=== PATIENT | male | born 2005 ===

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

== ENCOUNTER 2024-06-06 03:25 | Emergency (ER) | payer MEDICAID, SELFPAY ==
--- NOTE | ~2024-06-06 | CT_ITS ---
EXAMINATION: CT ABDOMEN AND PELVIS WITH CONTRAST CLINICAL INFORMATION: Right lower quadrant pain. COMPARISON: None available. TECHNIQUE: Multidetector volumetric images were obtained from the superior aspect of the liver through the pubic symphysis following administration 85 mL of Omnipaque 350 intravenous contrast. Sagittal and coronal reformatted images were obtained on the technologist's workstation. Oral contrast: No This CT examination was performed using dose optimization techniques as appropriate, variously including the following: *Automated exposure control *Adjustment of mA and/or kV according to patient size (this includes techniques or standardized protocols for targeted exams where dose is matched to indication/reason for exam; i.e. extremities or head) *Use of iterative reconstruction technique DLP: 542 mGy-cm FINDINGS: LUNG BASES: The visualized lung bases are unremarkable. LIVER, GALLBLADDER, AND BILIARY TREE: Nonspecific periportal edema is noted. The gallbladder is unremarkable with no evidence of radiopaque gallstones, gallbladder wall thickening, or obvious pericholecystic inflammatory changes. PANCREAS: Unremarkable. SPLEEN: Unremarkable. ADRENAL GLANDS: Unremarkable. KIDNEYS AND URETERS: Delayed right nephrographic enhancement is noted. Mild right hydronephrosis is visualized. Moderate right ureterectasis is identified. A 3 mm x 2 mm calculus is present at the right ureterovesicular junction. No additional urolithiasis identified. No perinephric inflammatory changes or perinephric fluid collections visualized. BLADDER: Unremarkable. GASTROINTESTINAL TRACT: Normal appendix. No intestinal dilatation or mural thickening. No free intraperitoneal fluid or gas collections. No intestinal dilatation or mural thickening. ABDOMINAL WALL: No significant hernia is appreciated. LYMPH NODES: Normal. VASCULAR: Unremarkable. PELVIC VISCERA: Unremarkable. OSSEOUS STRUCTURES: Incidental 5 mm synovial inclusion cyst associated with the right femoral neck. CT/CT abdomen pelvis w IV con IMPRESSION: *Single 3 mm x 2 mm obstructing calculus at the right ureterovesicular junction associated with mild-moderate right hydronephrosis and ureterectasis. No additional urolithiasis. No perinephric fluid collections. *Normal appendix. Fleischner guidelines were followed. Electronically signed by: Mino Howell MD 06/06/2024 05:34 AM EDT
[2024-06-06 03:30] VITALS: BP 142/90; PULSE 70; O2SAT 99
[2024-06-06 03:33] VITALS: BMI 25.3
[2024-06-06 03:37] VITALS: BP 119/72; PULSE 88; RESP 19; TEMP 36.7; O2SAT 100
[2024-06-06] MEDS: ondansetron HCL 4 MG/2 ML VIAL IVPUSH (03:52)
[2024-06-06] MEDS: 0.9 % Sodium Chloride 1,000 ML 999 ML IVCONT (03:52)
[2024-06-06] MEDS: Ketorolac Tromethamine 30 MG/ML VIAL IVPUSH (03:53)
--- NOTE | 2024-06-06 03:55 | ED_ITS ---
HPI - Abdominal Pain General Chief Complaint: Abdominal Pain Stated Complaint: severe abdominal pain Time Seen by Provider: 06/06/24 03:44 Source: patient and EMS Mode of arrival: EMS Limitations: no limitations History of Present Illness ED Provider: Dr. Kimberly Sanders HPI narrative: Patient comes to the emergency room complaining of approximately 2 hours of severe right lower quadrant pain. Patient states it is very sharp around the right lower quadrant, flank area radiating towards the groin. Patient denies hematuria or dysuria. Patient complaining of nausea and vomiting. Denies diarrhea. Denies surgical history Related Data Previous Rx's ?Medication ?Instructions ?Recorded cetirizine 10 mg tablet 10 mg PO DAILY PRN allergy 01/31/21 symptoms #30 tabs fluticasone propionate 44 1 puff inhalation BID #10.6 grams 01/31/21 mcg/actuation HFA aerosol inhaler prednisone 20 mg tablet 40 mg (2 x 20 mg) PO DAILY 4 days 01/31/21 #8 tabs acetaminophen 500 mg tablet 1,000 mg (2 x 500 mg) PO QID PRN 05/05/22 pain #30 tabs ibuprofen 600 mg tablet 600 mg PO Q6H PRN pain #20 tabs 05/05/22 hydrocodone 5 mg-acetaminophen 325 1 tab PO Q4-6H PRN pain #8 tabs 05/18/22 mg tablet ketorolac 10 mg tablet 10 mg PO Q8H #12 tabs 06/06/24 prednisone 20 mg tablet 20 mg PO DAILY #3 tabs 06/06/24 tamsulosin 0.4 mg capsule 0.4 mg PO DAILY #14 caps 06/06/24 Allergies Allergy/AdvReac Type Severity Reaction Status Date / Time Seasonal Allergies Allergy Itchy Eyes Verified 06/02/22 15:51 shellfish derived Allergy Angioedema Verified 06/06/24 03:38 Review of Systems Review of Systems Constitutional : No Weight loss, No Fever, No Chills, No Night Sweats, No Fatigue, No Malaise ENT/Mouth : No Hearing loss, No Ear Pain, No Nasal Congestion, No Sinus Pain, No Hoarseness, No sore throat, No Rhinorrhea, No Swallowing Difficulty Eyes: No Eye Pain, No Swelling, No Redness, No Foreign Body, No Discharge, No Vision Changes Cardiovascular : No Chest Pain, No SOB, No Dyspnea on Exertion, No Orthopnea, No Edema, No Palpitations Respiratory : No Cough, No Sputum, No Wheezing, No Smoke Exposure, No Dyspnea Gastrointestinal : Complaining of nausea vomiting and right lower quadrant pain Genitourinary : no irregular bleeding, No Dysuria, No Urinary Frequency, No Hematuria, No Urinary Incontinence, No Urgency, complaining of right-sided flank pain radiating towards the right groin area, No Urinary Flow Changes, No Hesitancy Musculoskeletal : No joint pain, No Myalgias, No Joint Swelling Skin : No Skin Lesions, No rash Neuro : No Weakness, No Numbness, No Paresthesias, No Loss of Consciousness, No Dizziness, No Headache Psych : No Anxiety/Panic, No Depression, No SI/HI/AH/VH, No Social Issues, Heme/Lymph: No Bruising, No Bleeding,No Lymphadenopathy Endocrine : No Polyuria, No Polydipsia, No Temperature Intolerance [facility] Past Medical History Medical History Asthma Social History Social History Alcohol intake: current Patient Tobacco Use Status: Never used Tobacco Smoked in Last 30 Days: Yes Use of substances other than those prescribed or required for medical reasons: Yes Substance Use Type: Marijuana Substance Use Frequency: Daily Advance Directives: No Advance Directives Information Provided: Yes Current occupational status: other Physical Exam ED Vital Signs: Vital Signs - 24 hr 06/06/24 03:37 Temperature 98.0 F Pulse Rate 88 Respiratory Rate 19 Blood Pressure 119/72 Pulse Oximetry 100 Oxygen Delivery Method Room Air BMI result Body Mass Index 25.3 Const Other: Appearance: Alert. Oriented X3. Seems very uncomfortable Eyes: Pupils equal, round and reactive to light. ENT: Pharynx normal. Neck: Normal inspection. Neck supple. No lymph nodes noted. No crepitus CVS: Normal heart rate and rhythm. Pulses normal. Normal S1 and S2 Respiratory: No respiratory distress. Breath sounds normal. No Wheezing. No rales Abdomen: Soft tenderness to palpation in all quadrants with much worse over right lower quadrant and right flank Skin: Skin warm and dry. Normal skin color. Normal skin turgor. Extremities: No lower extremity edema. No Lacerations. No Rash Neuro: Oriented X 3. No motor deficit. No sensory deficit. Moving all extremities. No slurred speech. CN 2 through 12 grossly intact Psych: calm, cooperative, normal affect Course Course Course Narrative: All of patient's labs pending CT scan pending -patient receiving IV fluids, Zofran and Toradol. Patient likely passing a kidney stone versus appendicitis Medical Decision Making Medical Decision Making [facility] Narrative: -my interpretation of labs, white blood cell count 12.4, normal chemistry, urinalysis shows blood in the urine negative nitrite or leukocyte esterase, no bacteria in the urine. -interpretation of CT scan, there is a small stone at the UVJ -after a dose of ketorolac and morphine patient feeling better. Discussed with the patient that he is passing a kidney stone. -after the above-mentioned medications, patient feeling better Differential Diagnosis Differential Diagnoses: The differential diagnosis associated with the presentation includes (Appendicitis, kidney stone) Admission/Observation Consideration of admission/observation: Escalation of care including admission/observation considered (Given patient's amount of discomfort, observation was considered) Lab Data [facility] Lab Attestation statement: I reviewed the patient's lab results. 06/06/24 03:51 06/06/24 03:51 Labs: Lab Results 06/06/24 06/06/24 Range/Units 03:51 05:03 WBC 12.4 H (4.8-10.8) X10*3/uL RBC 4.52 L (4.60-5.80) X10*6/uL Hgb 13.9 L (14.0-18.0) g/dl Hct 40.7 L (42.0-52.0) % MCV 90.0 (80.0-98.0) fL MCH 30.8 (27.0-33.0) pg MCHC 34.2 (31.0-36.0) g/dl RDW 12.4 (11.0-16.0) % Plt Count 238 (160-400) X10*3/uL MPV 9.0 L (9.4-12.4) fL Immature Gran % (Auto) 0.2 (0.0-0.4) % Neut % (Auto) 50.1 (45-73) % Lymph % (Auto) 39.1 (20-40) % [place] % (Auto) 8.7 (2-11) % Eos % (Auto) 1.6 (0-4) % Baso % (Auto) 0.3 (0-2) % Lymph # (Auto) 4.9 (1.2-4.9) X10*3/uL [place] # (Auto) 1.1 (0.1-1.2) X10*3/uL Eos # (Auto) 0.2 (0.0-0.4) X10*3/uL Baso # (Auto) 0.0 (0.0-0.2) X10*3/uL Abs Immat Gran (auto) 0.03 (0.00-0.03) X10*3/uL Absolute Neuts (auto) 6.2 (2.0-8.3) x10*3/uL Absolute Nucleated RBC 0.000 (0.0-0.012) X10*3/uL Nucleated RBC % (auto) 0.0 (0.0-0.2) /100WBC PT 11.5 (10.9-12.4) SEC INR 1.0 (0.9-1.1) Sodium 140 (135-145) mmol/L Potassium 3.3 (3.3-5.1) mmol/L Chloride 107 (96-108) mmol/L Carbon Dioxide 21 L (22-29) mmol/L Anion Gap 15 (12-20) BUN 12 (9-16) mg/dL Creatinine 1.25 (0.5-1.4) mg/dL Estim Creat Clear Calc 100.4 Estimated GFR > 60 Random Glucose 124 H (60-115) mg/dL Calcium 9.2 D (8.4-10.2) mg/dL Magnesium 1.7 (1.6-2.6) mg/dL Total Bilirubin 0.4 (0.0-1.0) mg/dL Direct Bilirubin 0.1 (0.0-0.5) mg/dL AST 19 (5-37) U/L ALT 16 (0-40) U/L Alkaline Phosphatase 70 (39-117) U/L Total Protein 7.2 (6.5-8.0) g/dL Albumin 4.2 (3.5-5.0) g/dL Lipase 14 (8-78) U/L Urine Color Yellow Urine Appearance Clear Urine pH 5.5 (5.0-9.0) Ur Specific [place] >= 1.030 H (1.005-1.025) Urine Protein 30 (1+) H (Neg-Trace) mg/dL Urine Glucose (UA) Negative (Negative) mg/dL Urine Ketones Negative (Negative) mg/dL Urine Blood Large (3+) H (Negative) Urine Nitrite Negative (Negative) Ur Leukocyte Esterase Negative (Negative) Urine RBC 3-5 H (0-2) /HPF Urine WBC 11-20 H (0-5) /HPF Ur Squamous Epith Cells 0-2 (0-2) /HPF Urine Bacteria None Seen (None Seen) Hyaline Casts 0-2 (0-2) /LPF Independent Interpretation I performed an independent interpretation of an: CT Scan Radiology Impression Discussion of test interpretation with radiology: I have reviewed the radiologist's reading. Radiologist Impression: *Single 3 mm x 2 mm obstructing calculus at the right ureterovesicular junction associated with mild-moderate right hydronephrosis and ureterectasis. No additional urolithiasis. No perinephric fluid collections. *Normal appendix. Medications Administered Discontinued Medications Generic Name Dose Route Start Last Admin Trade Name Freq PRN Reason Stop Dose Admin Sodium Chloride 1,000 mls @ 999 mls/hr 06/06/24 03:44 06/06/24 05:18 Ns IVCONT 06/06/24 04:44 Infused .Q1H1M ONE Infusion Iohexol 85 ml 06/06/24 04:31 06/06/24 04:32 Iohexol 350 Mg/Ml 100 Ml Infus..Btl IV 06/06/24 04:32 85 ml ONCE ONE Administration Ketorolac Tromethamine 30 mg 06/06/24 03:44 06/06/24 03:53 Ketorolac Tromethamine 30 Mg/Ml Vial IVPUSH 06/06/24 03:45 30 mg ONCE ONE Administration Morphine Sulfate 4 mg 06/06/24 04:48 06/06/24 05:01 Morphine Sulfate 4 Mg/Ml Cartridge IVPUSH 06/06/24 04:49 4 mg ONCE ONE Administration Protocol Ondansetron HCl 4 mg 06/06/24 03:44 06/06/24 03:52 Ondansetron Hcl 4 Mg/2 Ml Vial IVPUSH 06/06/24 03:45 4 mg ONCE ONE Administration Critical Care Time Critical Care Time Critical Care Time: Yes Total Critical Care Time: 60 Attestation: I have personally provided critical care time. Time includes review of lab data, radiology results, discussion with consultants, and monitoring for potential decompensation. Intervention performed as documented. Discharge Plan Discharge Clinical Impression: Kidney stone Patient Disposition: Home, Self-Care Instructions: Kidney Stones (ED) Additional Instructions: Please follow-up with your primary care physician tomorrow. If you have any worsening or new symptoms, please return to the emergency room or call 911 Prescriptions: New prednisone 20 mg tablet 20 mg PO DAILY Qty: 3 0RF tamsulosin 0.4 mg capsule 0.4 mg PO DAILY Qty: 14 0RF ketorolac 10 mg tablet 10 mg PO Q8H Qty: 12 0RF Rx Instructions: Do not use with ibuprofen, only NSAIDs No Action prednisone 20 mg tablet 40 mg PO DAILY 4 Days Qty: 8 0RF cetirizine 10 mg tablet 10 mg PO DAILY PRN (Reason: allergy symptoms) Qty: 30 2RF fluticasone propionate 44 mcg/actuation HFA aerosol inhaler 1 puff inhalation BID Qty: 10.6 2RF Rx Instructions: administer with spacer, rinse mouth after, only to be used daily during allergy season acetaminophen 500 mg tablet 1,000 mg PO QID PRN (Reason: pain) Qty: 30 0RF ibuprofen 600 mg tablet 600 mg PO Q6H PRN (Reason: pain) Qty: 20 0RF hydrocodone-acetaminophen 5-325 mg tablet 1 tab PO Q4-6H PRN (Reason: pain) Qty: 8 0RF Rx Instructions: Partial Fill upon patient request. Referrals: Johnathon Lawrence MD [Physician] - 06/12/24 Stand Alone Forms: Work/School Release Print Language: Greek
[2024-06-06 03:57] LABS: Basophils Percent Auto 0.3 % (0-2); Eosinophils Absolute Auto 0.2 X10*3/uL (0.0-0.4); Eosinophils Percent Auto 1.6 % (0-4); Hematocrit 40.7 % (42.0-52.0); Hemoglobin 13.9 g/dl (14.0-18.0); Imm Gran Abs Auto 0.03 X10*3/uL (0.00-0.03); Imm Gran Pct Auto 0.2 % (0.0-0.4); Lymphocytes Absolute Auto 4.9 X10*3/uL (1.2-4.9); Lymphocytes Percent Auto 39.1 % (20-40); MANUAL DIFF FLAG NO; Mean Corpuscular HGB Conc 34.2 g/dl (31.0-36.0); Mean Corpuscular Hemoglobin 30.8 pg (27.0-33.0); Monocytes Absolute Auto 1.1 X10*3/uL (0.1-1.2); Monocytes Percent Auto 8.7 % (2-11); Neutrophils Absolute Auto 6.2 x10*3/uL (2.0-8.3); Neutrophils Percent Auto 50.1 % (45-73); Platelet Count 238 X10*3/uL (160-400); Red Blood Count 4.52 X10*6/uL (4.60-5.80); Red Cell Distribution Width 12.4 % (11.0-16.0); White Blood Count 12.4 X10*3/uL (4.8-10.8)
[2024-06-06 04:02] LABS: Prothrombin Time 11.5 SEC (10.9-12.4)
[2024-06-06 04:18] LABS: Alanine Aminotransferase 16 U/L (0-40); Albumin Level 4.2 g/dL (3.5-5.0); Alkaline Phosphatase 70 U/L (39-117); Anion Gap 15 (12-20); Aspartate Amino Transferase 19 U/L (5-37); Bilirubin Direct 0.1 mg/dL (0.0-0.5); Bilirubin Total 0.4 mg/dL (0.0-1.0); Blood Urea Nitrogen 12 mg/dL (9-16); Calcium 9.2 mg/dL (8.4-10.2); Carbon Dioxide 21 mmol/L (22-29); Chloride 107 mmol/L (96-108); Creatinine Clr Calc Pharmacy 100.4; Estimated Glomerular Filt Rate > 60; Glucose Random 124 mg/dL (60-115); Lipase 14 U/L (8-78); Magnesium 1.7 mg/dL (1.6-2.6); Potassium 3.3 mmol/L (3.3-5.1); Sodium 140 mmol/L (135-145); Total Protein 7.2 g/dL (6.5-8.0)
[2024-06-06] MEDS: iohexoL 350 MG/ML 100 ML INFUS..BTL 85 ML IV (04:32)
[2024-06-06] MEDS: Morphine Sulfate 4 MG/ML CARTRIDGE IVPUSH (05:01)
[2024-06-06 05:17] LABS: Appearance Urine Clear; Color Urine Yellow; Glucose Urine UA Negative (Negative); Leukocyte Esterase Urine Negative (Negative); Nitrite Urine Negative (Negative); PH 5.5 (5.0-9.0); Specific Gravity - Urine >= 1.030 (1.005-1.025); UMIC TRIGGER UACC YES; Urine Blood Large (3+) (Negative); Urine Ketones Negative (Negative); Urine Protein 30 (1+) mg/dL (Neg-Trace)
[2024-06-06 05:25] LABS: Bacteria Urine None Seen (None Seen); Hyaline Casts Urine 0-2 /LPF (0-2); Squamous Epithelial Cell Urine 0-2 /HPF (0-2); UACC Culture Trigger YES
[2024-06-06 06:10] VITALS: BP 120/61; PULSE 75; RESP 18; TEMP 36.9; O2SAT 100
[2024-06-06 06:37] VITALS: BP 120/61; PULSE 75; RESP 18; TEMP 36.9; O2SAT 100
== END 2024-06-06 06:38 | disposition home or self-care (01) ==
PROVIDERS: Emergency Provider Emergency Medicine
DX: N13.2 Hydronephrosis with renal and ureteral calculous obstruction (principal); R10.31 Right lower quadrant pain; R11.2 Nausea with vomiting, unspecified; J45.909 Unspecified asthma, uncomplicated; Z79.899 Other long term (current) drug therapy
CPT/HCPCS: 36415; 74177; 80048; 80076; 81001; 83690; 83735; 85025; 85610; 87086; 96361; 96374; 96375; 99284; J1885; J2270; J2405; Q9967

== ENCOUNTER 2024-07-21 10:09 | Outpatient (AMB) | payer MEDICAID, SELFPAY ==
--- NOTE | 2024-07-21 10:21 | MHC.OFFVIS ---
Intake Visit Reasons: kidney stones Intake Note: New patient Presents for [facility] follow up Kidney stones Any Urology Medication: Tamsulosin, Prednisone Antibiotic Allergies: None Blood Thinners: None Any Family History (Urological): Bladder Cancer? None Prostate Cancer? None Kidney Disease? None Kidney Stones? 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 Accompanied by: Self / Same As Patient Allergies Seasonal Allergies Allergy (Verified 07/21/24 10:37) Itchy Eyes shellfish derived Allergy (Verified 07/21/24 10:37) Angioedema Medication List - Last Reconciled 07/21/24 by Johnathon Lawrence MD acetaminophen 1,000 mg (2 x 500 mg) PO QID PRN cetirizine 10 mg PO DAILY PRN fluticasone propionate 44 mcg/actuation 1 puff inhalation BID hydrocodone-acetaminophen 5-325 mg 1 tab PO Q4-6H PRN ibuprofen 600 mg PO Q6H PRN ketorolac 10 mg PO Q8H prednisone 40 mg (2 x 20 mg) PO DAILY 4 days prednisone 20 mg PO DAILY tamsulosin 0.4 mg PO DAILY HPI Comments Details: Heber is a pleasant male. He is a patient of . He is seen for following urologic conditions - nephrolithiasis Nephrolithiasis Recent hospital admission CT - Delayed right nephrographic enhancement is noted. Mild right hydronephrosis is visualized. Moderate right ureterectasis is identified. A 3 mm x 2 mm calculus is present at the right ureterovesicular junction Family history with father who has stones Encouraged 64 oz fluid per day and lemon juice Interval surveillance PFSH Medical History Asthma Social History Alcohol intake: current Patient Tobacco Use Status: Never used Tobacco Substance Use Type: Marijuana Current occupational status: other Review of Systems Const Denies chills and Denies fever(s) Card Reports no additional complaints and Denies syncope Resp Denies cough GI Denies abdominal pain and Denies heartburn Reports as per HPI and Denies change in libido Neuro Denies syncope Psych Denies change in libido Endo Denies change in libido Physical Exam Const General: cooperative, healthy appearing, comfortable and no acute distress Orientation/consciousness: patient oriented x3 HEENT Face and sinus: Yes normal facial exam Mouth: moist mucous membranes Neck Neck: Yes normal visual inspection, Yes full ROM and Yes trachea midline Chest Chest palpation & inspection: normal inspection of the chest Resp Effort & Inspection: normal respiratory effort, able to speak in complete sentences and no respiratory distress GI Inspection: Yes normal to inspection Back/Spine/Pelvis Cervical Spine: normal cervical lordosis Thoracic/Lumbar Spine: thoracic and lumbar spine normal to inspection Skin General skin exam: no rashes or lesions noted Neuro General: patient oriented x3, gait normal, tone normal and moves all extremities Extrem General: Yes normal to inspection and Yes capillary refill normal Assessment & Plan Assessment & Plan (1) Kidney stone: Code(s): N20.0 - Calculus of kidney Category: Medical Plan Twelve month follow-up renal ultrasound Orders: Orders US renal BI 12 Months N20.0 - Calculus of kidney Patient Instructions: Imaging studies, laboratory and physical exam results were discussed and reviewed in detail. No major barriers to patient understanding were identified. An opportunity to ask questions regarding the treatment plan was provided. All questions were answered. The patient expressed understanding and agreement with the above treatment plan. The patient is aware they should contact our office by phone for worsening of their current condition or the appearance of new urologic symptoms. Compliance is encouraged with any medications and followup testing that is ordered. It is a privilege to participate in the urologic care of your patient. If you have any questions or concerns regarding treatment for the above conditions, or other urologic issues, please do not hesitate to contact me. The office telephone contact is [phone]. This note is constructed using voice recognition software. While every effort has been made to ensure accuracy quality checker errors may have been included. Yours sincerely, Dr Johnathon Lawrence MD, EMER[facility] - Urology Providers of Expert, Compassionate Care for the Genitourinary System Coding Level of Care Code New Pt Level 3 (42939) Diagnoses Kidney stone N20.0
== END 2024-07-21 11:03 | disposition home or self-care (01) ==
PROVIDERS: PCP Internal Medicine; Visit Provider Urology
DX: N20.0 Calculus of kidney (principal)
CPT/HCPCS: 99203

== ENCOUNTER → 2024-07-21 10:09 | Outpatient (BNVA) | payer MEDICAID, SELFPAY | PROVIDERS: PCP Internal Medicine; Visit Provider Urology | DX: N20.0 Calculus of kidney (principal) | CPT/HCPCS: 99202 ==

== ENCOUNTER 2025-07-30 11:07 | Outpatient (REF) | payer MEDICAID, SELFPAY ==
--- OUTSIDE RECORDS SUMMARY | 2025-07-30 10:15 | XMS_ITS | Encounter Summary ---
Author Organization [employer] Address [address] [place] [address] [address] [address] Care Team Providers Care Wrapper Counter Name Role Phone Roopa Ceron MD Primary Care Provide r Reason for Referral * Consultation (Routine) - Authorized Specialty Diagnoses / Procedures Referred By Liliana fontaine Referred To Contact Dental Intraoperative Neuro Tech / Dentistry Diagnoses Encounter for preventive care Roopa Ceron MD [address] [place] [address] Phone: tel: fax: Referral ID Status Reason Start Date Expiration Date Visits Requested Visits Authorized [id number] Authorized Consult and Treat 07/30/2025 07/30/2026 1 1 Encounter Details Date Type Department Care Team (Late st Contact Info) Description 07/30/2025 10:15 AM EST Office Visit [facility] MED[facility]INE [address] [place], [place] [phone] Roopa Ceron MD [address] [place], [place] [phone] Heartburn (Primary Dx); Encounter for preventive care; Mild persistent asthma without complication; Smoker; Tinea pedis of both feet Social History Tobacco Use Types Packs/Day Years Used Date Smoking Tobacco: Some Days Cigarettes Passive Smoke Exposure: Current Smokeless Tobacco: Never Alcohol Use Standard Drinks/Week Comments Yes 0 (1 standard drink = 0.6 oz pur e alcohol) oca Depression Answer Date Recorded Patient Health Questionnaire-9 Score 13 07/30/2025 Patient Health Questionnaire-9 Score 13 07/30/2025 Last PHQ-9: Questionnaire Data Not on file 1 09/29/2024 Housing Stability Answer Date Recorded What is your housing situation today? I have thad petit 07/23/[address] you li ve. Do you have problems with any of the following? None of the above 07/23/2025 Food Insecurity Answer Date Recorded Within the past 12 months, y ou worried that your food would run out before you got money to buy more: Never True 07/23/2025 Within the past 12 months,th e food you bought just didn't last and you didn't have enough money to get more: Never True Transportation Answer Date Recorded In the past 12 months, has l ack of transportation kept you from medical appts, meetings, work or from getting things needed for daily living? No 07/23/2025 Utilities Answer Date Recorded In the past 12 months, has t he electric, gas, oil or water company threatened to shut off services in your home? No 07/23/2025 Depression Answer Date Recorded Patient Health Questionnaire-2 Score 3 07/30/2025 Internet Access Answer Date Recorded Internet Access Q1 Yes 07/23/2025 Internet Access Q2 Not on file 07/23/2025 Sex and Gender Information Value Date Recorded Sex Assigned at Male 07/06/2022 10:17 AM EDT Legal Sex Male 10:17 AM EDT Gender Identity Male 07/06/2022 10:17 AM EDT Sexual Orientation Straight 07/06/2022 10 :17 AM EDT documented as of this encounter Last Filed Vital Signs Vital Sign Reading Time Taken Comments Blood Pressure 124/92 07/30/2025 10:25 AM EST Pulse 74 07/30/2025 10:25 AM EST Temperature 36.1 C (96.9 F) 07/30/2025 10:25 AM EST Respiratory Rate 16 07/30/2025 10:2 5 AM EST Oxygen Saturation 97% 07/30/2025 10: 25 AM EST Inhaled Oxygen Concentration - - Weight 79.3 kg (174 lb 12.8 oz) 025 10:25 AM EST Height 180.3 cm (5' 11 ) 07/30/2025 10: 25 AM EST Body Mass Index 24.38 07/30/2025 10:25 AM EST documented in this encounter Functional Status * Over the past 2 weeks, how often have you been bothered by any of the following problems? Question Answer Date of Assessment Author Patient Health Questionnaire-2 Score 3 07/08 11:02 AM Yoana Hendricks MA * Little interest or pleasure in doing things Answer Date of Assessment Author Nearly every day 07/30/2025 11:02 AM Yoana Hendricks MA * Feeling down, depressed, or hopeless Answer Date of Assessment Author Not at all 07/30/2025 11:02 AM Irais Hendricks MA * Trouble falling or staying asleep, or sleeping too much Answer Date of Assessment Author Nearly every day 07/30/2025 11:02 AM Yoana Hendricks MA * Feeling tired or having little energy Answer Date of Assessment Author Nearly every day 07/30/2025 11:02 AM Yoana Hendricks MA * Poor appetite or overeating Answer Date of Assessment Author More than half the days 07/30/2025 11:02 AM Yoana Hendricks MA * Feeling bad about yourself - or that you are a failure or have let yourself or your family down Answer Date of Assessment Author Not at all 07/30/2025 11:02 AM Irais Hendricks MA * Trouble concentrating on things, such as reading the newspaper or watching television Answer Date of Assessment Author Not at all 07/30/2025 11:02 AM Irais Hendricks MA * Moving or speaking so slowly that other people could have noticed? Or the opposite - being so fidgety or restless that you have been moving around a lot more than usual. Answer Date of Assessment Author More than half the days 07/30/2025 11:02 AM Yoana Hendricks MA * Thoughts that you would be better off or hurting yourself in some way Answer Date of Assessment Author Not at all 07/30/2025 11:02 AM Irais Hendricks MA * Patient Health Questionnaire-9 Score Answer Date of Assessment Author 13 07/30/2025 11:02 AM Irais Hendricks MA * Over the last 2 weeks, how often have you been bothered by any of the following problems? Question Answer Date of Assessment Author Feeling nervous, anxious, or on edge 0 07/08 11:02 AM Yoana Hendricks MA Not being able to stop or co ntrol worrying 1 07/30/2025 11:02 AM Yoana Hendricks MA Worrying too much about diff erent things 1 07/30/2025 11:02 AM Yoana Hendricks MA Trouble relaxing 2 07/30/2025 11:02 AM Yoana Hendricks MA Being so restless that it is hard to sit still 0 07/30/2025 11:02 AM Yoana Hendricks MA Becoming easily annoyed or irritable 3 07/08 11:02 AM Yoana Hendricks MA Feeling afraid as if somethi ng awful might happen 1 07/30/2025 11:02 AM Yoana Hendricks MA VICKI-7 Total Score 8 07/30/2025 11:02 AM Yoana Hendricks MA * How difficult have these problems made it for you to do your work, take care of things at home, or get along with other people? Answer Date of Assessment Author Not difficult at all 07/30/2025 11:02 AM Yoana Price MA documented as of this encounter Progress Notes * Roopa Bains MD - 07/30/2025 10:15 AM EST SUBJECTIVE: Heber Maza is a 19 y.o. year old male who presents for Physical . 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 - Acute Concerns: Patient reports he has being having itchy dry skin/rash between his toes Patient reports she has being having epigastric abdominal pain and burning sensation also nausea specially on mornings Social History Social History Narrative Not on file Problem List[1] Low vision, both eyes Mild persistent asthma Overweight Kidney stone Mild intermittent asthma with exacerbation Diminished vision Hearing deficit, bilateral Onychomycosis Health care maintenance Encounter for preventive care Smoker Tinea pedis of both feet Family History[2] Review of Systems Constitutional: Negative. HENT: Negative. Respiratory: Negative. Cardiovascular: Negative. Gastrointestinal: Positive for abdominal pain, nausea and vomiting. Negative for abdominal distention, anal bleeding, blood in stool, constipation, diarrhea and rectal pain. Skin: Positive for rash. OBJECTIVE: Vitals: 07/30/25 1025 BP: (!) 124/92 BP Location: Left arm Patient Position: Sitting BP Cuff Size: Adult Pulse: 74 Resp: 16 Temp: 96.9 ??F (36.1 ??C) TempSrc: Temporal SpO2: 97% Weight: 174 lb 12.8 oz (79.3 kg) Height: 5' 11 (1.803 m) Physical Exam Constitutional: Appearance: Normal appearance. Cardiovascular: Rate and Rhythm: Normal rate and regular rhythm. Pulmonary: Effort: Pulmonary effort is normal. Breath sounds: Normal breath sounds. Abdominal: General: Abdomen is flat. Tenderness: There is abdominal tenderness in the epigastric area. Feet: Comments: Tinea pedis between tall toes Neurological: Mental Status: He is alert. Follow Up: No follow-ups on file. Medications Ordered Prior to Encounter[3] Problem List Items Addressed This Visit Encounter for preventive care See HPI Relevant Orders Referral to [facility] Dental Adult HIV-1/2 Antigen and Antibodies, Fourth Generation, with Reflexes Hepatitis A,B,C Profile RPR (Monitor) with Reflex to Titer Chlamydia/N. Gonorrhoeae, PCR, Urine Mild persistent asthma Stable c/w current interventions Relevant Medications albuterol (2.5 MG/3ML) 0.083% nebulizer solution albuterol (Ventolin HFA) 108 (90 Base) MCG/ACT inhaler Smoker Counseling done nicotine gum prescribed Relevant Medications nicotine polacrilex (Nicorette) 4 MG gum Tinea pedis of both feet Clotrimazole prescribed apply BID Relevant Medications clotrimazole (Lotrimin) 1 % cream Heartburn - Primary I advise patient to avoid NSAIDs, spicy and acid food, I advise to eat at the same time every day, I advise to elevate the head of the bed and take medications as prescribe Relevant Orders Helicobacter pylori Antigen, EIA, Stool [1] Patient Active Problem List Diagnosis Low vision, both eyes Mild persistent asthma Overweight Kidney stone Mild intermittent asthma with exacerbation Diminished vision Hearing deficit, bilateral Onychomycosis Health care maintenance Encounter for preventive care Smoker Tinea pedis of both feet Heartburn [2] No family history on file. [3] Current Outpatient Medications on File Prior to Visit Medication Sig Dispense Refill cetirizine (ZyrTEC) 10 MG tablet Take 1 tablet (10 mg) by mouth Once per day. 30 tablet 11 ciclopirox (Penlac) 8 % solution Apply topically at bedtime. 6 mL 1 ketorolac (Toradol) 10 MG tablet TAKE 1 TABLET BY MOUTH EVERY 8 HOURS (DO NOT USE WITH IBUPROFEN) Mometasone Furoate (Asmanex HFA) 100 MCG/ACT aerosol INHALE 2 PUFFS BY MOUTH 2 TIMES A DAY 30 g 2 montelukast (Singulair) 10 MG tablet TAKE 1 TABLET BY MOUTH EVERYDAY AT BEDTIME 90 tablet 1 tamsulosin (Flomax) 0.4 MG 24 hr capsule Take 0.4 mg by mouth Once per day. [DISCONTINUED] albuterol (2.5 MG/3ML) 0.083% nebulizer solution Take 3 mL (2.5 mg) by nebulization every 6 (six) hours if needed for wheezing. 75 mL 11 [DISCONTINUED] albuterol (Ventolin HFA) 108 (90 Base) MCG/ACT inhaler INHALE 2 TO 4 PUFFS BY MOUTH EVERY 4 HOURS NEEDED FOR WHEEZING AND COUGHING 18 g 1 No current facility-administered medications on file prior to visit. documented in this encounter Miscellaneous Notes * Assessment & Plan Note - Roopa Bains MD - 07/30/2025 12:13 PM EST Associated Problem(s): Smoker Counseling done nicotine gum prescribed * Assessment & Plan Note - Roopa Bains MD - 07/30/2025 12:12 PM EST Associated Problem(s): Tinea pedis of both feet Clotrimazole prescribed apply BID * Assessment & Plan Note - Roopa Bains MD - 07/30/2025 12:12 PM EST Associated Problem(s): Mild persistent asthma Stable c/w current interventions * Assessment & Plan Note - Roopa Bains MD - 07/30/2025 12:11 PM EST Associated Problem(s): Heartburn I advise patient to avoid NSAIDs, spicy and acid food, I advise to eat at the same time every day, I advise to elevate the head of the bed and take medications as prescribe * Assessment & Plan Note - Roopa Bains MD - 07/30/2025 12:11 PM EST Associated Problem(s): Encounter for preventive care See HPI documented in this encounter Plan of Treatment Upcoming Encounters Date Type Department Care Team (Late st Contact Info) Description 08/29/2025 10:00 AM EST Telemedicine [facility] MEDICINE [address] [place] [address] Roopa Ceron MD [address] [place] [address] Scheduled Orders Name Type Priority Associated Diagnoses Orde r Schedule HIV-1/2 Antigen and Antibodies, Fourth Generation, with Reflexes Lab Routine Encounter for preventive care Expected: 07/30/2025 (Approximate), Expires: 07/30/2026 Hepatitis A,B,C Profile Lab Routine Encounter for preventive care Expected: 07/30/2025, Expires: 07/30/2026 RPR (Monitor) with Reflex to Titer Lab Routine Encounter for preventive care Expected: 07/30/2025, Expires: 07/30/2026 Chlamydia/N. Gonorrhoeae, PCR, Urine Lab Routine Encounter for preventive care Ordered: 07/30/2025 Helicobacter pylori Antigen, EIA, Stool Lab Routine Heartburn Expected: 07/30/2025, Expires: 07/30/2026 Scheduled Referrals Name Type Priority Associated Diagnoses Orde r Schedule Referral to [facility] Dental Adult Outpatient Referral Routine Encounter for preventive care Expected: 07/30/2025 (Approximate), Expires: 07/30/2026 documented as of this encounter Visit Diagnoses Diagnosis Heartburn- Primary Encounter for preventive care Mild persistent asthma without complication Smoker Tobacco use disorder Tinea pedis of both feet documented in this encounter Additional Health Concerns Assessment Noted Time PHQ-9 Depression Total Score: 13 025 11:02 AM EST documented as of this encounter Care Teams Wrapper Counter Relationship Specialty Start Date End Date Roopa Ceron MD [address] [place] [id number] PCP - General Internal Medicine 05/12/24 documented as of this encounter
--- OUTSIDE RECORDS SUMMARY | 2025-07-30 14:19 | XMS_ITS | Clinical Summary ---
Author Organization [employer] Address [address] [facility] [address] [place] [address] Care Team Providers Care Dictaphone Operator Name Role Phone Roopa Ceron MD Primary Care Provide r Allergies Active Allergy Reactions Criticality Noted Date Comments Shellfish Allergy Unknown Medium 01/12/2023 Medications Mometasone Furoate (Asmanex HFA) 100 MCG/ACT aerosol INHALE 2 PUFFS BY MOUTH 2 TIMES A DAY 30 g 2 024 Active ciclopirox (Penlac) 8 % solutionIndicat ions:Onychomyco sis Apply topically at bedtime. 6 mL 1 Active ketorolac (Toradol) 10 MG tablet TAKE 1 TABLET BY MOUTH EVERY 8 HOURS (DO NOT USE WITH IBUPROFEN) Active tamsulosin (Flomax) 0.4 MG 24 hr capsule Take 0.4 mg by mouth Once per day. 024 Active cetirizine (ZyrTEC) 10 MG tablet Take 1 tablet (10 mg) by mouth Once per day. 30 tablet 11 025 2025 Active montelukast (Singulair) 10 MG tablet TAKE 1 TABLET BY MOUTH EVERYDAY AT BEDTIME 90 tablet 1 025 Active albuterol (2.5 MG/3ML) 0.083% nebulizer solutionIndicat ions:Mild persistent asthma without complication Take 3 mL (2.5 mg) by nebulization every 6 (six) hours if needed for wheezing. 75 mL 11 11/242025 Active albuterol (Ventolin HFA) 108 (90 Base) MCG/ACT inhalerIndicati ons:Mild persistent asthma without complication INHALE 2 TO 4 PUFFS BY MOUTH EVERY 4 HOURS NEEDED FOR WHEEZING AND COUGHING 18 g 1 Active nicotine polacrilex (Nicorette) 4 MG gumIndications: Smoker Chew 1 each (4 mg) if needed for smoking cessation. 100 each 025 2024 Active clotrimazole (Lotrimin) 1 % creamIndication s:Tinea pedis of both feet Apply topically 2 times daily for 28 days. 30 g 2 025 2024 Active albuterol (2.5 MG/3ML) 0.083% nebulizer solution Take 3 mL (2.5 mg) by nebulization every 6 (six) hours if needed for wheezing. 75 mL 11 025 2024 Discontinued(R eorder (will not trigger notification to Pharmacy)) albuterol (Ventolin HFA) 108 (90 Base) MCG/ACT inhaler INHALE 2 TO 4 PUFFS BY MOUTH EVERY 4 HOURS NEEDED FOR WHEEZING AND COUGHING 18 g 1 025 2024 Discontinued(R eorder (will not trigger notification to Pharmacy)) Active Problems Problem Noted Date Diagnosed Date Encounter for preventive care 07/30/2025 Assessment & Plan (07/30/2025 12:11 PM EST): See HPI Smoker 07/30/2025 Assessment & Plan (07/30/2025 12:13 PM EST): Counseling done nicotine gum prescribed Tinea pedis of both feet 07/30/2025 Assessment & Plan (07/30/2025 12:12 PM EST): Clotrimazole prescribed apply BID Heartburn 07/30/2025 Assessment & Plan (07/30/2025 12:11 PM EST): I advise patient to avoid NSAIDs, spicy and acid food, I advise to eat at the same time every day, I advise to elevate the head of the bed and take medications as prescribe Diminished vision 07/11/2024 Hearing deficit, bilateral 07/11/2024 Onychomycosis 07/11/2024 Health care maintenance 07/11/2024 Kidney stone 07/04/2024 Assessment & Plan (07/04/2024 7:01 PM EDT): No evidence of UTI today. Har[facility] Brusher to increase PO fluids, filter urine. Start Pyridium 200 mg, continue Flomax and refer to Urology. Mild intermittent asthma with exacerbation 07/04 Assessment & Plan (07/04/2024 7:01 PM EDT): Restart Flovent BID and use Albuterol 4 x per day prn SOB. He smokes cigarettes occasionally, advised to quit. Mild persistent asthma 01/12/2023 Assessment & Plan (07/30/2025 12:12 PM EST): Stable c/w current interventions Low vision, both eyes 08/15/2013 Overweight 08/15/2013 Encounters Date Type Department Care Team Description 07/30/2025 10:15 AM EST Office Visit [facility] [address] [place] [phone] Roopa Ceron MD Heartburn (Primary Dx); Encounter for preventive care; Mild persistent asthma without complication; Smoker; Tinea pedis of both feet 07/30/2025 Travel 07/27/2025 Telephone [facility] [address] [place] [address] Roopa Ceron MD chart prep 07/23/2025 Patient Outreach [address] [address] Roopa Ceron MD Pre-visit Planning (SDOH screening negative and tobacco screening positive) 05/17/2025 Telephone [facility] [address] [place], [place] [phone] Roopa Ceron MD NOV RECALL 05/08/2025 Refill [facility] [address] [place] [phone] Roopa Ceron MD from Last 3 Months Immunizations Immunization Administration Dates Next Due DTaP 03/15/2009, 5,07/03/2004,05/01,03/03/2004 HPV 9-Valent 02/21/2021,11/29/2020,07/28/2019 Hep A, ped/adol, 2 dose 01/01/2015,08/15/2013 Hep B, Adolescent or Pediatric 4,05/01/2004,01/31/2004,12/25 Hib (HbOC) 04/23/2005, 4,05/01/2004,03/03 IPV 03/15/2009, 4,05/01/2004,03/03 Influenza injectable quadriv alent preservative free 11/29/2020,07/28/2019,06/15/2016,06/24 Influenza, IIV3, injectable 07/07/2007 Influenza, Split (incl. indra fied surface antigen) 08/15/2013 Influenza, seasonal, injecta ble, preservative free 07/11/2024 MMR 03/15/2009,01/21/2005 Meningococcal MCV4P ACYW-135 11/29/2020,06/24/20 15 Pneumococcal Conjugate PCV 20 07/11/2024 Pneumococcal Conjugate PCV 7 04/13/2005, 07/03/2004,05/01/2004,03/03 Pneumococcal, Unspecified 04/13/2005,,05/01/2004,03/03 Tdap 11/29/2020,06/28/2015 Varicella 03/15/2009,01/21/2005 Social History Tobacco Use Types Packs/Day Years Used Date Smoking Tobacco: Some Days Cigarettes Passive Smoke Exposure: Current Smokeless Tobacco: Never Tobacco Cessation:Ready to Q uit: Not Asked; Counseling Given: Not Answered Alcohol Use Standard Drinks/Week Comments Yes 0 [...] Orientation Straight 07/06/2022 10 :17 AM EDT Last Filed Vital Signs Vital Sign Reading [...] Mass Index 24.38 07/30/2025 10:25 AM EST Plan of Treatment Upcoming Encounters Date Type Department Care Team (Late st Contact Info) Description 08/29/2025 10:00 AM EST Telemedicine [facility] [address] [place] [address] Roopa Ceron MD [address] [place] [address] Health Maintenance Due Date Last Done Comments Chlamydia and Gonorrhea Screening 2003 HIV Screening 2003 Family Planning (PISQ) 12/25/2018 Meningococcal B Vaccine (1 of 2 - Standard) 2019 Hepatitis C Screening 12/25/2021 COVID-19 Vaccine ( - season) 2025 Influenza Vaccine (#1) 2025 , 11/29/2020, 07/28/2019, Additional history exists Lipid Panel 11/29/2025 11/29/2020 Depression Monitoring 01/27/2026 07/30/2025, 025 SDOH Screening 07/23/2026 07/23/2025 Alcohol/Substance Use Screening 07/30/2026 07/30/2025 Disability Screening 07/30/2026 07/30/2025 Tobacco Screening 07/30/2026 07/30/2025 DTaP/Tdap/Td Vaccines (8 - Td or Tdap) 11/29/2030 11/29/2020, 06/28/2015, 03/15/2009, Additional history exists Zoster Vaccines (1 of 2) 12/25/2053 RSV Patients and Patients Aged 60 years or older (1 - 1-dose 75+ series) 12/25/2078 Hepatitis B Vaccines Completed 07/03/2004, 05/01/2004, 01/31/2004, Additional history exists HIB Vaccines Completed 04/23/2005, 06/07, 05/01/2004, Additional history exists IPV Vaccines Completed 03/15/2009, 06/07, 05/01/2004, Additional history exists Hepatitis A Vaccines Completed 01/01/2015, 08/15/20 13 Meningococcal Vaccine Completed 11/29/2020, 015 HPV Vaccines Completed 02/21/2021, 11/05, 07/28/2019 Pneumococcal Vaccine: Pediatrics (0 to 5 Years) and At-Risk Patients (6 to 49) Years Completed 07/11/2024, 04/13/2005, 04/13/2005, Additional history exists RSV under 20 months Aged Out No longe r eligible based on patient's age to complete this topic Rotavirus Vaccines Aged Out No longer eligible based on patient's age to complete this topic Procedures Procedure Name Priority Date/Time Associated Diagnosis Comments LIPID PANEL, STANDARD Routine 11/29/2020 11:19 AM EDT from Last 3 Months or Most Recently Relevant to Health Maintenance Results * (ABNORMAL) LIPID PANEL, STANDARD (11/29/2020 11:19 AM EDT) Chol/HDLC Ratio 4.5 <5.0 (calc) [facility] Cholesterol, Total 192(H) <170 mg/dL [facility] HDL Cholesterol 43(L) >45 mg/dL [facility] LDL Cholesterol 133(H) <110 mg/dL (calc) [facility] Comment: LDL-C is now calculated using the Fermin-Leroy calculation, which is a validated novel method providing better accuracy than the Friedewald equation in the estimation of LDL-C. Fermin SS et al. MAO. 2013;310(19): 5707-7080 (http://education.[employer].com/faq/PJQ724) Non-HDL Cholesterol 149(H) <120 mg/dL (calc) [facility] Comment: For patients with diabetes plus 1 major ASCVD risk factor, treating to a non-HDL-C goal of <100 mg/dL (LDL-C of <70 mg/dL) is considered a therapeutic option. Triglycerides 72 <90 mg/dL [facility] 11/29/2020 11:1 9 AM EDT us Sunni Knapp MD LAB BLOOD ORDERABLES Final Re sult [facility] [address] from Last 3 Months or Most Recently Relevant to Health Maintenance Insurance [facility] C3 Care Teams Dictaphone Operator Relationship Specialty Start Date End Date Roopa Ceron MD [address] [place] [phone] PCP - General Internal Medicine 05/12/24
--- OUTSIDE RECORDS SUMMARY | 2025-07-30 14:20 | XMS_ITS | Encounter Summary ---
Author Organization [employer] Address [address] [place] [address] Care Team Providers Care Director Targeted Marketing Name Role Phone Roopa Ceron MD Primary Care Provide r Encounter Details Date Type Department Care Team (Latest Contact Info) Description 07/30/2025 Travel Social History Tobacco Use Types Packs/Day Years [...] AM EDT documented as of this encounter Functional Status * Over the [...] Trouble relaxing 2 07/30/2025 11:02 AM Yoana Hnedricks [place] Being so restless that it is [...] Price [place] documented as of this encounter Plan of Treatment Upcoming Encounters Date Type Department Care Team (Late st Contact Info) Description 08/29/2025 10:00 AM EST Telemedicine [facility] [address] [place] [phone] Roopa Ceron MD [address] [place] [address] documented as of this encounter Visit Diagnoses Not on filedocumented in this encounter Additional Health Concerns Assessment Noted Time PHQ-9 Depression Total Score: 13 07/30/2 025 11:02 AM EST documented as of this encounter Care Teams Director Targeted Marketing Relationship Specialty Start Date End Date Roopa Ceron MD [address] [place] [phone] PCP - General Internal Medicine 05/12/24 documented as of this encounter
--- OUTSIDE RECORDS SUMMARY | 2025-07-30 14:20 | XMS_ITS | Encounter Summary ---
Author Organization [employer] Address [address] [place] [address] [address] [place] [address] Care Team Providers Care Workforce Staffing Advisor Name Role Phone Roopa Ceron MD Primary Care Provide r Reason for Visit * Reason Onset Date Comments chart prep 07/27/2025 Encounter Details Date Type Department Care Team ([facility] st Contact Info) Description 07/27/2025 Telephone [facility] [address] [place] [address] Roopa Ceron MD [address] [place] [phone] chart prep Social History Tobacco Use Types Packs/Day Years Used Date Smoking Tobacco: Some Days Cigarettes Passive Smoke Exposure: Current Smokeless Tobacco: Never Alcohol Use Standard Drinks/Week Comments Yes 0 (1 standard drink = 0.6 oz pur e alcohol) oca Depression Answer Date Recorded Patient Health Questionnaire-9 Score 0 07/11/2024 Patient Health Questionnaire-9 Score 0 07/11/2024 Last PHQ-9: Questionnaire Data Not on file 1 09/10/2023 Housing Stability Answer Date Recorded What is [...] Answer Date Recorded Patient Health Questionnaire-2 Score 0 07/11/2024 Internet Access Answer Date Recorded Internet Access Q1 Yes 07/23/2025 Internet Access Q2 Not on file 07/23/2025 Sex and Gender Information Value Date Recorded Sex Assigned at Male 07/06/2022 10:17 AM EDT Legal Sex Male 10:17 AM EDT Gender Identity Male 07/06/2022 10:17 AM EDT Sexual Orientation Straight 07/06/2022 10 :17 AM EDT documented as of this encounter Miscellaneous Notes * Telephone Encounter - Jarrod Salinas [place] - 07/27/2025 10:43 AM EST Chart Prep Labs: not applicable Images: not applicable Referrals: not applicable Vaccines due: Covid and Flu Screenings: STI screening Overdue care gaps: SBIRT, PHQ-9, VICKI-7, and Disability screen documented in this encounter Plan of Treatment Upcoming Encounters Date Type Department Care Team (Late st Contact Info) Description 08/29/2025 10:00 AM EST Telemedicine [facility] [address] [place] [address] Roopa Ceron MD [address] [place] [address] documented as of this encounter Visit Diagnoses Not on filedocumented in this encounter Additional Health Concerns Assessment Noted Time PHQ-9 Depression Total Score: 0 07/11/20 24 1:12 PM EST documented as of this encounter Care Teams Workforce Staffing Advisor Relationship Specialty Start Date End Date Roopa Ceron MD [address] [place] [address] PCP - General Internal Medicine 05/12/24 documented as of this encounter
[2025-07-30 14:45] LABS: CT PCR Urine NOT DETECTED (Not Detect.); NG PCR Urine NOT DETECTED (Not Detect.)
[2025-07-31 05:11] LABS: HBS Num1 2.24 mIU/mL (0-7.99); HBc Num1 0.09 S/CO (0.00-0.79); HBsAGNum1 0.33 S/CO (0.00-0.99); HIV Num 1 0.06 S/CO (0.00-0.99); Hepatitis A Antibody IgM 0.19 Index (0-0.79); Hepatitis B Surface Antigen Negative (Negative); ~HepC Num1 0.08 S/CO (0.00-0.79); ~Hepatitis A Antibody IgM Nonreactive (Nonreactive); ~Hepatitis B Surface Antibody NONREACTIVE (Nonreactive); ~Hepatitis C Antibody Nonreactive (Nonreactive)
== END 2025-07-30 11:08 | disposition home or self-care (01) ==
LOC: HO.HHCL 11:07
PROVIDERS: PCP Internal Medicine; Visit Provider Internal Medicine
DX: Z00.00 Encounter for general adult medical examination without abnormal findings (principal); Z20.2 Contact with and (suspected) exposure to infections with a predominantly sexual mode of transmission; Z11.4 Encounter for screening for human immunodeficiency virus [HIV]; Z11.59 Encounter for screening for other viral diseases
CPT/HCPCS: 86592; 86704; 86706; 86709; 86803; 87340; 87389; 87491; 87591

== ENCOUNTER 2025-08-01 10:43 | Outpatient (REF) | payer MEDICAID, SELFPAY | END 2025-08-01 10:44 | disposition home or self-care (01) | LOC: HO.HHCLNP 10:43 | PROVIDERS: PCP Internal Medicine; Visit Provider Internal Medicine | DX: R12 Heartburn (principal) | CPT/HCPCS: 87338 ==

== ENCOUNTER 2025-08-17 14:52 | Outpatient (REF) | payer MEDICAID, SELFPAY ==
--- NOTE | ~2025-08-17 | US_ITS ---
EXAMINATION: US KIDNEY BILATERAL HISTORY: N20.0 - Calculus of kidney TECHNIQUE: Real-time grayscale ultrasound imaging of the kidneys was performed and images were reviewed. COMPARISON: Correlation is made with a CT of the abdomen with contrast dated 06/06/2024. FINDINGS: Right kidney: The right kidney measures 10.7 x 3.3 x 5.2 cm. Renal parenchymal echotexture and thickness are normal. There are no masses. There is no hydronephrosis or renal calculi. Left Kidney: The left kidney measures 9.7 x 4.7 x 5.2 cm. Renal parenchymal echotexture and thickness are normal. There are no masses. There is no hydronephrosis or renal calculi. US/US renal BI IMPRESSION: Unremarkable renal ultrasound. Electronically signed by: Mejia Colmenares MD 08/17/2025 03:54 PM [facility]
--- OUTSIDE RECORDS SUMMARY | 2025-08-17 19:55 | XMS_ITS | Clinical Summary ---
Author Organization [employer] Address [address] [place] [address] Care Team Providers Care Health Program Specialist Name Role Phone Roopa Ceron MD Primary [...] PM EDT): No evidence of UTI today. Employee Relations Director to increase PO fluids, filter urine. Start [...] Encounters Date Type Department Care Team Description 08/17/2025 Orders Only [facility] External Provider, [facility] 07/30/2025 10:15 AM EST Office Visit [facility] [address] [place] [phone] Roopa Ceron MD Heartburn (Primary Dx); Encounter for preventive care; Mild persistent asthma without complication; Smoker; Tinea pedis of both feet 07/30/2025 Travel 07/27/2025 Telephone [facility] [address] [place] [phone] Roopa Ceron MD chart prep 07/23/2025 Patient Outreach [address] [phone] Roopa Ceron MD Pre-visit Planning (SDOH screening negative and tobacco screening positive) from Last 3 Months Immunizations Immunization Administration [...] Info) Description 08/29/2025 10:00 AM EST Telemedicine [facility] [address] [place] [phone] Roopa Ceron MD [address] [place], [place] [phone] Health Maintenance Due Date Last Done Comments Family Planning (PISQ) 12/25/2018 Meningococcal B Vaccine (1 of 2 - Standard) 2019 COVID-19 Vaccine (1 - 2024- season) 2025 Influenza Vaccine (#1) 2025 , 11/29/2020, 07/28/2019, Additional history exists Lipid Panel 11/29/2025 11/29/2020 Depression Monitoring 01/27/2026 07/30/2025, 025 SDOH Screening 07/23/2026 07/23/2025 Alcohol/Substance Use Screening 07/30/2026 07/30/2025 Chlamydia and Gonorrhea Screening 07/30/2026 07/30/2025 Disability Screening 07/30/2026 07/30/2025 [...] Completed 07/11/2024, 04/13/2005, 04/13/2005, Additional history exists HIV Screening Completed 07/30/2025 Hepatitis C Screening Completed 07/30/2025 RSV under 20 months Aged Out No longe r eligible based on patient's age to complete this topic Rotavirus Vaccines Aged Out No longer eligible based on patient's age to complete this topic Procedures Procedure Name Priority Date/Time Associated Diagnosis Comments US RENAL COMPLETE Routine 08/17/2025 3:1 5 PM EST HELICOBACTER PYLORI AG, EIA, STOOL Routine 08/01/2025 10:00 AM EST Heartburn RPR (MONITOR) W/REFL TITER Routine 07/30/2025 11:33 AM EST Encounter for preventive care HEPATITIS PANEL, GENERAL Routine 07/30/2025 11:33 AM EST Encounter for preventive care HIV 1/2 ANTIGEN/ANTIBODY, FOURTH GENERATION W/RFL Routine 07/30/2025 11:33 AM EST Encounter for preventive care CHLAMYDIA/TRICHOMONAS /NEISSERIA GONORRHOEAE, PCR, URINE Routine 07/30/2025 11:33 AM EST Encounter for preventive care LIPID PANEL, STANDARD Routine 11/29/2020 11:19 AM EDT from Last 3 Months or Most Recently Relevant to Health Maintenance Results * US Renal Complete (08/17/2025 3:15 PM EST) Anatomical Region Laterality Modality Kidney Ultrasound 08/17/2025 3:15 PM EST Narrative 08/17/2025 3:56 PM EST [place] [id number] Ultrasound Report Signed Patient: Heber Maza MR#: [id number] : 2005 Acct:[id number] Age/Sex: 19 / M ADM Date: 08/17/25 Loc: HO.US Attending Dr: Johnathon Lawrence MD Ordering Physician: Johnathon Lawrence MD Date of Service: 08/17/25 Procedure(s): US renal BI Accession Number(s): [id number] cc: Roopa Ceron MD; Johnathon Lawrence MD Reason for Exam: N20.0 - Calculus of kidney EXAMINATION: US KIDNEY BILATERAL HISTORY: N20.0 - Calculus of kidney TECHNIQUE: Real-time grayscale ultrasound imaging of the kidneys was performed and images were reviewed. COMPARISON: Correlation is made with a CT of the abdomen with contrast dated 06/06/2024. FINDINGS: Right kidney: The right kidney measures 10.7 x 3.3 x 5.2 cm. Renal parenchymal echotexture and thickness are normal. There are no masses. There is no hydronephrosis or renal calculi. Left Kidney: The left kidney measures 9.7 x 4.7 x 5.2 cm. Renal parenchymal echotexture and thickness are normal. There are no masses. There is no hydronephrosis or renal calculi. US/US renal BI IMPRESSION: Unremarkable renal ultrasound. Electronically signed by: Mejia Colmenares MD 08/17/2025 03:54 PM EST Dictated By: Mejia Colmenares MD Signed By: <Electronically signed by Mejia Colmenares MD in OV> 08/17/25 1554 DD/ 1515 TD/TT: 08/17/25 1530 Surveillance Systems Engineer: Procedure Note Donotuseinterpreter, Image - 08/17/2025 [place] [address] Ultrasound Report Signed Patient: Heber MazaMR#: [id number] : 2005Acct:[id number] Age/Sex: 19 M Date: 08/17/25 Loc: HO.US Attending Dr: Johnathon Lawrence MD Ordering Physician: Johnathon Lawrence MD Date of Service: 08/17/25 Procedure(s): US renal BI Accession Number(s): [id number] cc: Roopa Ceron MD; Johnathon Lawrence MD Reason for Exam: N20.0 - Calculus of kidney EXAMINATION: US KIDNEY BILATERAL HISTORY: N20.0 - Calculus of kidney TECHNIQUE: Real-time grayscale ultrasound imaging of the kidneys was performed and images were reviewed. COMPARISON: Correlation is made with a CT of the abdomen with contrast dated 06/06/2024. FINDINGS: Right kidney: The right kidney measures 10.7 x 3.3 x 5.2 cm. Renal parenchymal echotexture and thickness are normal. There are no masses. There is no hydronephrosis or renal calculi. Left Kidney: The left kidney measures 9.7 x 4.7 x 5.2 cm. Renal parenchymal echotexture and thickness are normal. There are no masses. There is no hydronephrosis or renal calculi. US/US renal BI IMPRESSION: Unremarkable renal ultrasound. Electronically signed by: Mejia Colmenares MD 08/17/2025 03:54 PM EST RP Dictated By: Mejia Colmenares MD Signed By: <Electronically signed by Mejia Colmenares MD in OV> 08/17/25 1554 DD/ 1515 TD/TT: 08/17/25 1530 Surveillance Systems Engineer: [facility] External Provider IMG US PROCEDURES Final Result * Helicobacter pylori??Antigen, EIA, Stool (08/01/2025 10:00 AM EST) H pylori Ag Stool SEE NOTE [facility] Comment:HELICOBACTER PYLORI AG, EIA, STOOL Micro Number: [id number] Test Status: Final Specimen Source: Stool Specimen Quality: Adequate H.pylori Ag: Not Detected Antimicrobials, proton pump inhibitors, and bismuth preparations inhibit H. pylori and ingestion up to two weeks prior to testing may cause false negative results. If clinically indicated the test should be repeated on a new specimen obtained two weeks after discontinuing treatment. Reference Range: Not DetectedTHIS TEST WAS PERFORMED AT:[facility] [place] [id number] KEMP MD Stool Rectal contents / Unknown 08/01/2025 10:00 AM EST 08/01/2025 1:39 PM EST Result [facility] Roopa Bains MD LAB BODY FLUIDS AND S TOOLS ORDERABLES Final Result [facility] [address] [place] [phone] * Chlamydia/N. Gonorrhoeae, PCR, Urine (07/30/2025 11:33 AM EST) CT PCR, Urine NOT DETECTED Not Detect. [facility] Comment:A not detected test result does not exclude the possibilityof infection because test results can be affected byimproper specimen collection, concurrent antibiotic therapy,or the number of organisms in the specimen which may bebelow the sensitivity of the test. As with many diagnostictests, results from the Xpert CT/NG assay should beinterpreted in conjunction with other laboratory andclinical data available to the clinician.The Xpert CT/NG assay should not be used for the evaluationof suspected sexual abuse or for other medico-legalindications. Additional testing is recommended in anycircumstance when false positive or false negative resultscould lead to adverse medical, social or psychologicalconsequences. NG PCR, Urine NOT DETECTED Not Detect. [facility] Comment:A not detected test result does not exclude the possibilityof infection because test results can be affected byimproper specimen collection, concurrent antibiotic therapy,or the number of organisms in the specimen which may bebelow the sensitivity of the test. As with many diagnostictests, results from the Xpert CT/NG assay should beinterpreted in conjunction with other laboratory andclinical data available to the clinician.The Xpert CT/NG assay should not be used for the evaluationof suspected sexual abuse or for other medico-legalindications. Additional testing is recommended in anycircumstance when false positive or false negative resultscould lead to adverse medical, social or psychologicalconsequences. Urine (Urine, Random) 07/30/2025 11:33 AM EST 07/30/2025 12:56 PM EST us Roopa Bains MD LAB URINE ORDERABLES Final Result [facility] [address] [place] [phone] * Hepatitis A,B,C Profile (07/30/2025 11:33 AM EST) Pathologist [facility] Hepatitis A IgM Nonreactive Nonreactive [facility] Comment:IgM antibodies to HUNTER V not detected; does not exclude earlyacute or recovered HAV infection. ~Hepatitis B Surface Antibody NONREACTIVE Nonreactive [facility] Comment:Nonreactive: < 8.00 mIU/mL Hepatitis B Core Antibody Nonreactive Nonreactive [facility] Hepatitis C Antibody Nonreactive Nonreactive [facility] Comment:Antibodies to HCV no t detected; does not exclude early acuteHCV infection. Hepatitis B Surface Ag Negative Negative [facility] Blood Venous blood specimen / Unknown 07/30/2025 11:33 AM EST 07/30/2025 1:04 PM EST us Roopa Bains MD LAB BLOOD ORDERABLES Final Result Performing Organization Address [facility] Co de Phone Number [facility] [address] [place] [phone] * RPR (Monitor) with Reflex to??Titer (07/30/2025 11:33 AM EST) RPR (Monitor) w/Refl Titer NON-REACTI VE NON-REACT DEBBI [facility] Comment:THIS TEST WAS PERFOR MED AT:[employer] [address] [id number] KEMP MD Rapid Plasma Reagin Ab Titer TNP [facility] Blood Venous blood specimen / Unknown 07/30/2025 11:33 AM EST 07/30/2025 1:04 PM EST us Roopa Bains MD LAB BLOOD ORDERABLES Final Result Performing Organization Address [facility] Co de Phone Number [facility] [address] [place] [phone] * HIV-1/2 Antigen and Antibodies, Fourth Generation, with Reflexes (07/30/2025 11:33 AM EST) HIV AB/AG Nonreactive Nonreactive [facility] Comment:HIV-1 p24 Ag and/or HIV-1/HIV-2 Ab not detected.A test result that is nonreactive does not exclude thepossibility of exposure to or infection with HIV-1 and/orHIV-2. Nonreactive results in this assay for individualswith prior exposure to HIV-1 and/or HIV-2 may be due toantigen and antibody levels that are below the limit ofdetection of this assay.The WebMD HIV Ag/Ab Combo assay result andsupplemental assay results should be interpreted inconjunction with the patient's clinical presentation,history and other laboratory results. If the results areinconsistent with clinical evidence, additional testing issuggested to confirm the result. Blood Venous blood specimen / Unknown 07/30/2025 11:33 AM EST 07/30/2025 1:04 PM EST us Roopa Bains MD LAB BLOOD ORDERABLES Final Result [facility] [address] [place] [phone] * (ABNORMAL) LIPID PANEL, STANDARD (11/29/2020 11:19 AM EDT) Chol/HDLC Ratio 4.5 <5.0 (calc) [facility] Cholesterol, Total 192(H) <170 mg/dL [facility] HDL Cholesterol 43(L) >45 mg/dL [facility] LDL Cholesterol 133(H) <110 mg/dL (calc) [facility] Comment: LDL-C is now calculated using the Fermin-Leroy calculation, which is a validated novel method providing better accuracy than the Friedewald equation in the estimation of LDL-C. Fermin SS et al. MAO. 2013;310(19): 4621-6969 (http://education.Crosswise.Ion Torrent/faq/ENG149) Non-HDL Cholesterol 149(H) <120 mg/dL (calc) [facility] Comment: For patients with diabetes plus 1 major ASCVD risk factor, treating to a non-HDL-C goal of <100 mg/dL (LDL-C of <70 mg/dL) is considered a therapeutic option. Triglycerides 72 <90 mg/dL [facility] 11/29/2020 11:1 9 AM EDT us Sunni Knapp MD LAB BLOOD ORDERABLES Final Re sult [facility] [address] [place] [address], from Last 3 Months or Most Recently Relevant to Health Maintenance Insurance [employer] [address] [place] [phone] Care Teams Health Program Specialist Relationship Specialty Start Date End Date Roopa Ceron MD [address] [place] [phone] PCP - General Internal Medicine 05/12/24
--- OUTSIDE RECORDS SUMMARY | 2025-08-17 19:56 | XMS_ITS | Encounter Summary ---
Author Organization [employer] Address [address] [place] [address] Care Team Providers Care Research Associate Policy Name Role Phone Roopa Ceron MD Primary Care Provide r Encounter Details Date Type Department Care Team (Late st Contact Info) Description 08/17/2025 Orders Only [facility] External Provider, [facility] Social History Tobacco Use Types Packs/Day Years [...] AM EDT documented as of this encounter Plan of Treatment Upcoming Encounters Date Type Department Care Team (Late st Contact Info) Description 08/29/2025 10:00 AM EST Telemedicine [facility] [address] [place] [phone] Roopa Ceron MD [address] [place] [address] documented as of this encounter Procedures Procedure Name Priority Date/Time Associated Diagnosis Comments US RENAL COMPLETE Routine 08/17/2025 3:1 5 PM EST documented in this encounter Results * US Renal Complete (08/17/2025 3:15 PM EST) Anatomical Region Laterality Modality Kidney Ultrasound 08/17/2025 3:15 PM EST Narrative 08/17/2025 3:56 PM EST [address] [address] Ultrasound Report Signed Patient: Heber Maza MR#: [id number] : 2005 Acct:[id number] Age/Sex: 19 / M ADM Date: 08/17/25 Loc: HO.US Attending Dr: Johnathon Lawrence MD Ordering Physician: Johnathon Lawrence MD Date of Service: 08/17/25 Procedure(s): US renal BI Accession Number(s): [id number] cc: Roopa Ceron MD; Johnathon Lawrence MD [...] 08/17/25 1554 DD/ 1515 TD/TT: 08/17/25 1530 Catheterization Laboratory Technician: Procedure Note Donotuseinterpreter, Image - 08/17/2025 [place] [address] Ultrasound Report Signed Patient: Heber MazaMR#: [id number] : 2005Acct:[id number] Age/Sex: 19 / MADM Date: 08/17/25 Loc: HO.US Attending Dr: Johnathon Lawrence MD Ordering Physician: Johnathon Lawrence MD Date of Service: 08/17/25 Procedure(s): US renal BI Accession Number(s): [id number] cc: Roopa Ceron MD; Johnathon Lawrence MD [...] 08/17/25 1554 DD/ 1515 TD/TT: 08/17/25 1530 Catheterization Laboratory Technician: [facility] External Provider IMG US PROCEDURES Final Result documented in this encounter Visit Diagnoses Not on filedocumented in this encounter Additional Health Concerns Assessment Noted Time PHQ-9 Depression Total Score: 13 07/30/ 025 11:02 AM EST documented as of this encounter Care Teams Research Associate Policy Relationship Specialty Start Date End Date Roopa Ceron MD [address] [place] [phone] PCP - General Internal Medicine 05/12/24 documented as of this encounter
== END 2025-08-17 14:53 | disposition home or self-care (01) ==
LOC: HO.US 14:52
PROVIDERS: PCP Internal Medicine; Visit Provider Urology
DX: N20.0 Calculus of kidney (principal)
CPT/HCPCS: 76775

== ENCOUNTER → 2025-08-17 14:55 | Outpatient (BNV) | payer MEDICAID, SELFPAY | PROVIDERS: PCP Internal Medicine; Visit Provider Radiology Diagnostic Radiology | DX: N20.0 Calculus of kidney (principal) | CPT/HCPCS: 76775 ==